=== PATIENT | female | born 1945 | race Caucasian/White ===

== ENCOUNTER 2020-07-31 15:16 | Day surgery (SDC) | payer MEDICARE ==
[2020-07-31] MEDS ORDERED: BUPIVACAINE 0.5% VIAL IJ ONE (15:17)
[2020-07-31] MEDS ORDERED: Depo-Medrol 40 MG/ML IM ONE (15:17)
[2020-07-31] MEDS ORDERED: Xylocaine 1% Vial 30 ML PF IJ ONE (15:17)
--- NOTE | 2020-07-31 16:59 | XRAY ---
Indication: Left SI joint injection. Intraoperative fluoroscopy was provided for 18 seconds. 2 digital spot images submitted for interpretation demonstrates posterior needle tip projecting over the left SI joint inferiorly. Correlate with intraoperative findings/report.
--- NOTE | 2020-07-31 17:04 | XRAY ---
18 seconds fluoroscopy time in surgery for left SI joint injection.
== END 2020-07-31 17:00 | disposition home or self-care (01) ==
LOC: SDC-PAIN 15:16
PROVIDERS: ATTEND Psychiatry & Neurology Pain Medicine
DX: M46.1 Sacroiliitis, not elsewhere classified (principal); I10 Essential (primary) hypertension; K21.9 Gastro-esophageal reflux disease without esophagitis; M19.90 Unspecified osteoarthritis, unspecified site; C44.91 Basal cell carcinoma of skin, unspecified; Z79.899 Other long term (current) drug therapy
CPT/HCPCS: 72020; 77002; G0260; 27096; J1030; J2001

== ENCOUNTER 2022-05-06 14:28 | Day surgery (SDC) | payer MEDICARE ==
[2022-05-06] MEDS ORDERED: XYLOCAINE-MPF 1% 5ML SDV IJ ONE (14:29)
[2022-05-06] MEDS ORDERED: Marcaine Mpf 0.5% Vial 30 Ml IJ ONE (14:29)
[2022-05-06] MEDS ORDERED: Depo-Medrol 40 MG/ML IM ONE (14:29)
--- NOTE | 2022-05-06 16:29 | XRAY ---
Indication: Bilateral SI joint injection. Intraoperative fluoroscopy provided for 23 seconds. 4 digital spot image submitted for interpretation demonstrates posterior needle tip projecting over the inferior left and right SI joints. Correlate with intraoperative findings/report.
--- NOTE | 2022-05-06 16:45 | XRAY ---
23 seconds of fluoroscopy was used in surgery for bilateral SI joint injections.
== END 2022-05-06 16:20 | disposition home or self-care (01) ==
LOC: SDC-PAIN 14:28
PROVIDERS: ATTEND Psychiatry & Neurology Pain Medicine
DX: M46.1 Sacroiliitis, not elsewhere classified (principal); Z79.899 Other long term (current) drug therapy
CPT/HCPCS: 27096; 72202; 77002; G0260; J1030

== ENCOUNTER 2022-07-27 10:32 | Day surgery (SDC) | payer MEDICARE ==
--- NOTE | 2022-07-27 08:48 | HP ---
DATE OF SURGERY: 07/27/2022 HISTORY OF PRESENT ILLNESS: The patient is a 76-year-old with family history of colon cancer. No bloody stools. Change in bowel movements, constipation on MiraLAX, alternating with loose stools with chunks at times a little bit different than in the past. Occasional left-sided aches. PAST MEDICAL HISTORY: Hypertension. Arthritis. Hyperlipidemia. PAST SURGICAL HISTORY: Hemorrhoid surgery. Hip surgery in the past. MEDICATIONS: Vitamin D3, aspirin, gabapentin, simvastatin, amlodipine, losartan. ALLERGIES: NKDA. FAMILY HISTORY: Colon cancer. Chronic obstructive pulmonary disease. SOCIAL HISTORY: No smoking or alcohol abuse. REVIEW OF SYSTEMS: Fourteen systems reviewed, negative or noncontributory as above and per preadmission questionnaire. PHYSICAL EXAMINATION: GENERAL: No acute distress. HEENT: Sclerae nonicteric. NECK: No JVD. CHEST: Equal excursion, nonlabored breathing. CVS: Regular rate and rhythm. ABDOMEN: Very soft. No peritoneal signs. She had some minimal tenderness in the left abdomen in the past. EXTREMITIES: No significant edema. NEURO: Alert, oriented, moving extremities symmetrically. RECTAL: Deferred timed to endoscopy exam. PSYCH: Appropriate mood and affect. IMPRESSION: Family history of colon cancer, some change in bowel movements. She is in need of follow-up screening colonoscopy given her family history. She was shown the risk sheet explained the procedure in detail including but not limited to bleeding or infection, risk of bowel injury or perforation possibly requiring further procedure, risk of missed or nondiagnosis or incomplete exam, possibly requiring barium enema, other studies or procedures, general risk of anesthesia or sedation, risk of bowel prep but not limited to, possibility of inability to diagnose the etiology of the bowel changes. She understands and agrees to the planned procedure, will proceed with outpatient follow up colonoscopy.
[2022-07-27] MEDS ORDERED: Lactated Ringers 1,000 ML IV ONE (10:45)
[2022-07-27] MEDS ORDERED: Lactated Ringers 1,000 ML IV SCH (11:00)
[2022-07-27] MEDS ORDERED: DIPRIVAN 200 MG/20 ML IV ONE ×2 (13:23→13:38)
[2022-07-27 14:25] VITALS: O2SAT 98
--- NOTE | 2022-07-27 15:20 | OP ---
SURGERY DATE/TIME: 07/27/2022 1325 PREOPERATIVE DIAGNOSIS: Family history of colon cancer, need follow up screening colonoscopy. Additionally, she had some alternating constipation and loose stools as well. POSTOPERATIVE DIAGNOSES: 1) Fair bowel prep. 2) Diverticulosis mostly the left colon. 3) Small polyps rectum x2. 4) Fairly unremarkable terminal ileum. PROCEDURES: 1) Colonoscopy to terminal ileum. 2) Random cold biopsies of the ileum. 3) Random cold biopsies of the colon to evaluate for microscopic ileitis and evaluation of microscopic colitis. 4) Hot biopsy rectal polyp x2. SURGEON: Dr. Thomas Brody. SUMMONS SERVER: Darryl Davies, Medical Student II. ANESTHESIA: MAC. ESTIMATED BLOOD LOSS: Minimal. INDICATIONS: As noted above. Risks and benefits explained in detail but not limited to and consent obtained. DESCRIPTION OF PROCEDURE AND FINDINGS: The patient is taken to the endoscopy room. MAC anesthesia induced. After official time out and no disagreement with planned procedure, digital rectal exam did not reveal any rectal masses. Video colonoscope inserted and passed up the slightly tortuous sigmoid, descending, transverse and ascending colon around to the cecum. Appendiceal orifice and valve well visualized and photo documented. It was a difficult angle but the scope was able to be passed into the terminal ileum which was grossly unremarkable. Cold biopsy eventually taken for evaluation of microscopic ileitis since she had a little change in her bowel habits recently. Some random cold biopsies were taken in the colon to evaluate for macroscopic colitis. Otherwise overall the prep was fair. The withdrawal time was about 8 minutes, stopping to do random biopsy in the ileum and colon. The scope is pulled back. She did have mild to moderate diverticulosis in the left colon. There is a small, little early polyp versus hyperplastic lesion in the rectum removed with hot biopsy forceps. Good hemostasis was noted. The scope is withdrawn. Findings discussed with the family out in the waiting area.
[2022-07-27 15:26] VITALS: BP 148/67; PULSE 88
== END 2022-07-27 15:00 | disposition home or self-care (01) ==
LOC: SDC 10:32
PROVIDERS: ATTEND Surgery
DX: Z12.11 Encounter for screening for malignant neoplasm of colon (principal); Z80.0 Family history of malignant neoplasm of digestive organs; K57.30 Diverticulosis of large intestine without perforation or abscess without bleeding; K62.1 Rectal polyp; D13.30 Benign neoplasm of unspecified part of small intestine
CPT/HCPCS: 99100; J2704

== ENCOUNTER 2022-09-02 09:56 | Day surgery (SDC) | payer MEDICARE ==
[2022-09-02] MEDS ORDERED: BUPIVACAINE 0.5% VIAL IJ ONE (09:57)
[2022-09-02] MEDS ORDERED: Depo-Medrol 40 MG/ML IM ONE (09:57)
[2022-09-02] MEDS ORDERED: XYLOCAINE-MPF 1% 5ML SDV IJ ONE (09:57)
[2022-09-02] MEDS ORDERED: Decadron 4 MG INJ IV ONE (09:57)
[2022-09-02] MEDS ORDERED: Lactated Ringers 1,000 ML IV ONE (10:53)
[2022-09-02] MEDS ORDERED: DIPRIVAN 200 MG/20 ML IV ONE (11:20)
--- NOTE | 2022-09-02 12:20 | XRAY ---
Indication: Bilateral SI joint and bilateral piriformis injection. Intraoperative fluoroscopy provided for 1 minute 1 seconds. 7 digital spot images submitted for interpretation demonstrates posterior needle tip projecting over the left and right SI joint. Additional posterior needle tip projects over the left and right piriformis muscles with small amount of contrast injected for needle tip placement. Correlate with intraoperative findings/report.
--- NOTE | 2022-09-02 13:51 | XRAY ---
One minute and 1 second of fluoroscopy was used in surgery for bilateral sacroiliac joint and piriformis muscle injections.
== END 2022-09-02 11:50 | disposition home or self-care (01) ==
LOC: SDC-PAIN 09:56
PROVIDERS: ATTEND Psychiatry & Neurology Pain Medicine
DX: M46.1 Sacroiliitis, not elsewhere classified (principal); M79.18 Myalgia, other site; Z79.899 Other long term (current) drug therapy
CPT/HCPCS: 01992; 20552; 27096; 72202; 77002; 99100; G0260; J1030; J1100; J2704; Q9966

== ENCOUNTER 2023-04-26 17:52 | Emergency (ER) | payer MEDICARE ==
[2023-04-26 18:00] VITALS: TEMP 98.7; O2SAT 98
[2023-04-26] MEDS ORDERED: BABY ASPIRIN 81 MG CHEW PO ONE (18:13)
--- NOTE | 2023-04-26 18:14 | ERPHSYRPT ---
- History of Present Illness Time Seen by Provider: 04/26/23 18:13 Historian: patient Exam Limitations: no limitations Patient Subjective Stated Complaint: Pt states "I was cooking and had this horrible pain shoot accross my chest into both arm and I got a little short of breath." Triage Nursing Assessment: Pt presented alert and oriented X 3, skin pwd. Pt ambulates with an upright steady gait, able to speak in clear full sentences. PT resting comfortably on the bed. Physician History: This is a 77-year-old white female patient of Dr. Leung who presents with sudden onset of bolt of pain simultaneously starting at her bilateral upper extremities going across her chest. As quickly as it came the pain left. She has no chest pain at this time. However, she had associated weakness and mild shortness of breath. She still has those symptoms but they are much less intense. She has no documented history of any cardiac disease. She has never had this kind of pain before. She does not have a headache. She had no visual changes. Patient has no fever and no cough. Patient does have a history of hypertension and hyperlipidemia. Timing/Duration: today Activities at Onset: none Quality: other ("[place] of shooting pain") Location: other (Initial bilateral upper extremity and shot across her chest) Severity of Pain-Max: moderate Severity of Pain-Current: none Modifying Factors: Improves With: nothing Associated Symptoms: shortness of breath (Mild), weakness (Mild) Prior Chest Pain/Cardiac Workup: no prior chest pain, no prior cardiac workup Nitro Today/Relief: no nitro taken today Aspirin Treatment Today: 81 mg x 4 Allergies/Adverse Reactions: No Known Drug Allergies Allergy (Verified 07/27/22 10:52) Home Medications: Amlodipine Besylate 10 mg PO DAILY 06/30/22 [History] Aspirin [Low Dose Aspirin EC] 81 mg HS 06/30/22 [History] Losartan Potassium 25 mg PO DAILY 06/30/22 [History] Simvastatin 10 mg [Zocor 10MG] 10 mg PO DAILY 06/30/22 [History] Trazodone HCl 50 mg HS 06/30/22 [History] hydroCHLOROthiazide [Hydrochlorothiazide] 25 mg PO DAILY 06/30/22 [History] Hx Tetanus, Diphtheria Vaccination/Date Given: Yes Hx Influenza Vaccination/Date Given: Yes Hx Pneumococcal Vaccination/Date Given: Yes Immunizations Up to Date: Yes Travel Risk - International Travel Have you traveled outside of the country in past 3 weeks: No - Coronavirus Screening Are you exhibiting any of the following symptoms?: No Close contact with a COVID-19 positive Pt in past 14-21 Days: No - Vaccine Status Have you recieved a Covid-19 vaccination: Yes 3D Artist: Moderna - Vaccination Dates Date of 2cond Vaccination (if applicable): 2020 - Review of Systems Constitutional: No Symptoms Eyes: No Symptoms Ears, Nose, & Throat: No Symptoms Respiratory: No Symptoms Cardiac: Chest Pain Abdominal/Gastrointestinal: No Symptoms Genitourinary Symptoms: No Symptoms Musculoskeletal: No Symptoms Skin: No Symptoms Neurological: No Symptoms Psychological: No Symptoms Endocrine: No Symptoms Hematologic/Lymphatic: No Symptoms Immunological/Allergic: No Symptoms All Other Systems: Reviewed and Negative - Past Medical History Pertinent Past Medical History: Yes Neurological History: No Pertinent History ENT History: No Pertinent History Cardiac History: Hypertension Respiratory History: No Pertinent History Endocrine Medical History: No Pertinent History Musculoskeletal History: No Pertinent History GI Medical History: No Pertinent History History: No Pertinent History Psycho-Social History: No Pertinent History Female Reproductive Disorders: No Pertinent History - Past Surgical History Past Surgical History: Yes Neuro Surgical History: No Pertinent History Cardiac: No Pertinent History Respiratory: No Pertinent History Gastrointestinal: No Pertinent History Genitourinary: No Pertinent History Musculoskeletal: Joint Replacement Female Surgical History: Tubal Ligation Other Surgical History: wrist lt, left hip, colonoscopy,EGD - Social History Smoking Status: Never smoker Exposure to second hand smoke: No Drug Use: none Patient Lives Alone: No - Nursing Vital Signs Nursing Vital Signs: Initial Vital Signs Temperature 98.7 F 04/26/23 17:52 Pulse Rate 95 H 04/26/23 17:52 Respiratory Rate 20 04/26/23 17:52 Blood Pressure 171/75 04/26/23 17:52 O2 Sat by Pulse Oximetry 98 04/26/23 17:52 Pain Scale Pain Intensity 0 - Physical Exam General Appearance: no apparent distress, alert, anxiety Eye Exam: PERRL/EOMI, eyes nml inspection Ears, Nose, Throat Exam: normal ENT inspection, moist mucous membranes Neck Exam: normal inspection, non-tender, supple, full range of motion Respiratory Exam: normal breath sounds, lungs clear, airway intact, other (Patient no longer has chest pain or discomfort), No respiratory distress Cardiovascular Exam: regular rate/rhythm, normal heart sounds, normal peripheral pulses Gastrointestinal/Abdomen Exam: soft, normal bowel sounds, No tenderness Pelvic Exam: not done Rectal Exam: not done Back Exam: normal inspection, normal range of motion, No CVA tenderness, No vertebral tenderness Extremity Exam: normal inspection, normal range of motion, pelvis stable Neurologic Exam: alert, oriented x 3, cooperative, furnace cooler II-XII nml as tested, normal mood/affect, nml cerebellar function, nml station & gait, sensation nml Skin Exam: normal color, warm, dry Lymphatic Exam: No adenopathy SpO2 Interpretation: normal SpO2: 98 O2 Delivery: Room Air - Course Nursing assessment & vital signs reviewed: Yes EKG Interpreted by Me: RATE (84), Sinus Rhythm, NORMAL AXIS, NORMAL INTERVALS, NORMAL QRS, NORMAL ST-T, Other Ordered Tests: Active Orders 24 hr Category Date Time Status Doctor Of Podiatry STAT Care 04/26/23 18:14 Active EKG-ER Only STAT Care 04/26/23 18:13 Active IV Insertion STAT Care 04/26/23 18:13 Active Pulse Oximetry (ED) STAT Care 04/26/23 18:13 Active CHEST 1 VIEW (PORTABLE) Stat Exams 04/26/23 18:14 Taken CHEST WITH CONTRAST [CT] Stat Exams 04/26/23 19:13 Taken CBC W DIFF Stat Lab 04/26/23 18:05 Completed CMP Stat Lab 04/26/23 18:05 Completed D-DIMER QUANTITATIVE Stat Lab 04/26/23 18:49 Completed TROPONIN Q4H Lab 04/26/23 18:05 Completed TROPONIN Q4H Lab 04/26/23 20:57 Completed TROPONIN Q4H Lab 04/27/23 02:15 Ordered Medication Summary Discontinued Medications Generic Name Dose Route Start Last Admin Trade Name Freq PRN Reason Stop Dose Admin Aspirin 324 mg 04/26/23 18:13 04/26/23 18:30 Aspirin 81 Mg Tab.Chew PO 04/26/23 18:14 324 mg STAT ONE Administration Aspirin Confirm 04/26/23 18:27 Aspirin 81 Mg Tab.Chew Administered 04/26/23 18:28 Dose 324 mg .ROUTE .STK-MED ONE Sodium Chloride 500 mls @ 500 mls/hr 04/26/23 19:13 04/26/23 19:28 Sodium Chloride 0.9% 500 Ml IV 04/26/23 20:12 500 mls/hr .Q1H ONE Administration Sodium Chloride Confirm 04/26/23 19:26 Sodium Chloride 0.9% 500 Ml Administered 04/26/23 19:27 Dose 500 mls @ ud IV .STK-MED ONE Potassium Chloride 10 meq 04/26/23 19:13 04/26/23 19:28 Potassium Chloride Tab 10 Meq Tab PO 04/26/23 19:14 10 meq STAT ONE Administration Potassium Chloride Confirm 04/26/23 19:26 Potassium Chloride Tab 10 Meq Tab Administered 04/26/23 19:27 Dose 10 meq PO .STK-MED ONE Lab/Rad Data: Laboratory Result Diagrams 04/26/23 18:05 04/26/23 18:05 Laboratory Results 04/26/23 04/26/23 04/26/23 Range/Units 20:57 18:49 18:05 WBC (4.0-10.5) x10^3/uL RBC (4.1-5.4) x10^6/uL Hgb (12.0-16.0) g/dL Hct (35-47) % MCV (78-100) fL MCH (26-32) pg MCHC (32-36) g/dL RDW (11.5-14.0) % Plt Count (150-450) x10^3/uL MPV (7.5-11.0) fL Gran % (36.0-66.0) % Immature Gran % (Auto) (0.00-0.4) % Nucleat RBC Rel Count (0.00-0.1) % Eos # (Auto) (0-0.5) x10^3/uL Immature Gran # (Auto) (0.00-0.03) x10^3u/L Absolute Lymphs (auto) (1.0-4.6) x10^3/uL Absolute Monos (auto) (0.0-1.3) x10^3/uL Absolute Nucleated RBC (0.00-0.01) x10^3u/L Lymphocytes % (24.0-44.0) % Monocytes % (0.0-12.0) % Eosinophils % (0.00-5.0) % Basophils % (0.0-0.4) % Absolute Granulocytes (1.4-6.9) x10^3/uL Basophils # (0-0.4) x10^3/uL D-Dimer 0.91 H* (0.0-0.50) mg/L Sodium (137-145) mmol/L Potassium (3.5-5.1) mmol/L Chloride (98-107) mmol/L Carbon Dioxide (22-30) mmol/L Anion Gap (5-15) MEQ/L BUN (7-17) mg/dL Creatinine (0.52-1.04) mg/dL Estimated GFR ML/MIN Glucose (74-106) mg/dL Calcium (8.4-10.2) mg/dL Total Bilirubin (0.2-1.3) mg/dL AST (14-36) U/L ALT (0-35) U/L Alkaline Phosphatase (38-126) U/L Troponin I 0.016 0.015 (0.000-0.034) ng/mL Serum Total Protein (6.3-8.2) g/dL Albumin (3.5-5.0) g/dL 04/26/23 04/26/23 Range/Units 18:05 18:05 WBC 5.1 (4.0-10.5) x10^3/uL RBC 4.07 L (4.1-5.4) x10^6/uL Hgb 13.4 (12.0-16.0) g/dL Hct 40.0 (35-47) % MCV 98.3 (78-100) fL MCH 32.9 H (26-32) pg MCHC 33.5 (32-36) g/dL RDW 12.3 (11.5-14.0) % Plt Count 248 (150-450) x10^3/uL MPV 8.7 (7.5-11.0) fL Gran % 60.2 (36.0-66.0) % Immature Gran % (Auto) 0.4 (0.00-0.4) % Nucleat RBC Rel Count 0.0 (0.00-0.1) % Eos # (Auto) 0.09 (0-0.5) x10^3/uL Immature Gran # (Auto) 0.02 (0.00-0.03) x10^3u/L Absolute Lymphs (auto) 1.49 (1.0-4.6) x10^3/uL Absolute Monos (auto) 0.38 (0.0-1.3) x10^3/uL Absolute Nucleated RBC 0.00 (0.00-0.01) x10^3u/L Lymphocytes % 29.3 (24.0-44.0) % Monocytes % 7.5 (0.0-12.0) % Eosinophils % 1.8 (0.00-5.0) % Basophils % 0.8 (0.0-0.4) % Absolute Granulocytes 3.06 (1.4-6.9) x10^3/uL Basophils # 0.04 (0-0.4) x10^3/uL D-Dimer (0.0-0.50) mg/L Sodium 134 L (137-145) mmol/L Potassium 3.4 L (3.5-5.1) mmol/L Chloride 99 (98-107) mmol/L Carbon Dioxide 25 (22-30) mmol/L Anion Gap 13.0 (5-15) MEQ/L BUN 16 (7-17) mg/dL Creatinine 1.09 H (0.52-1.04) mg/dL Estimated GFR 51.6 ML/MIN Glucose 83 (74-106) mg/dL Calcium 9.3 (8.4-10.2) mg/dL Total Bilirubin 0.50 (0.2-1.3) mg/dL AST 23 (14-36) U/L ALT 16 (0-35) U/L Alkaline Phosphatase 60 (38-126) U/L Troponin I (0.000-0.034) ng/mL Serum Total Protein 6.6 (6.3-8.2) g/dL Albumin 4.4 (3.5-5.0) g/dL - Progress Progress: improved, re-examined Air Movement: good Progress Note: 04/26/23 21:03 Chest x-ray was interpreted by me. There is no evidence of any acute cardiopulmonary process. The patient's medical issue is 1 of moderate complexity. Level of complexity and the work-up performed is based on review of the patient's past medical history, review of the patient's medication list, reviewed the patient's drug allergy list, history of present illness and physical findings on examination. The work-up in this patient includes placement of an intravenous line, twelve- lead EKG, CBC, CMP, D-dimer and troponin level. In addition, I ordered an x-ray of the chest and interpreted that study. I reviewed the results of the work- up. The patient had an elevated D-dimer and the remainder of the work-up results show no acute, emergent medical issue. I ordered a CT scan of the chest with contrast and I am awaiting the results of this study. If this study is negative, patient be discharged home with instruction to follow-up with her primary care provider on 04/27/2020 3 in the morning. She is to make a follow-up appointment for further evaluation and management including referral to a speech professor if indicated. 04/26/23 22:15 CT scan of the chest with contrast shows a small hiatal hernia but no acute cardiopulmonary process. There is no evidence of pulmonary embolus. Blood Culture(s) Obtained: No Antibiotics given: No Counseled pt/family regarding: lab results, diagnosis, need for follow-up, rad results Medical Desision Making - Independent Historian Additional History obtained from: Spouse - Diagnostic Testing Diagnostic test were ordered, analyzed, and reviewed by me: Yes Radiological Interpretation: Interpreted by me, Reviewed by me, Teleradiologist Report - Risk of complications Low Risk: Low risk of morbidity from additional dx testing or treatment - Departure Departure Disposition: Home Clinical Impression: Chest pain Condition: Stable Critical Care Time: No Referrals: ELBERT YOUNGBLOOD, [Primary Care Provider] - Follow up/PCP as directed Additional Instructions: Take all your medication as prescribed. Call your primary care provider tomorrow morning, 04/27/2023, to make arrangements for further evaluation and management including outpatient cardiac work-up and possible referral to a speech professor if indicated.
[2023-04-26] MEDS ORDERED: BABY ASPIRIN 81 MG CHEW ONE (18:27)
[2023-04-26 18:52] LABS: ALBUMIN 4.4 g/dL (3.5-5.0); Absolute Neutrophil Ct (ANC) 3.06 x10^3/uL (1.4-6.9); BASOPHIL % 0.8 % (0.0-0.4); BILIRUBIN,TOTAL 0.5 mg/dL (0.2-1.3); Basophil (Absolute #) 0.04 x10^3/uL (0-0.4); Calcium 9.3 mg/dL (8.4-10.2); Creatinine 1 1.09 mg/dL (0.52-1.04); EST GLOMERULAR FILTRATION RATE 51.6 ML/MIN; Eosinophil % 1.8 % (0.00-5.0); Eosinophil (Absolute #) 0.09 x10^3/uL (0-0.5); Hemoglobin 13.4 g/dL (12.0-16.0); IMMATURE GRAN # 0.02 x10^3u/L (0.00-0.03); IMMATURE GRAN % 0.4 % (0.00-0.4); Lymphocyte (Absolute #) 1.49 x10^3/uL (1.0-4.6); Lymphocytes % 29.3 % (24.0-44.0); Mean Cell Volume 98.3 fL (78-100); Mean Corpuscular Hemoglobin 32.9 pg (26-32); Mean Corpuscular Hgb Concent. 33.5 g/dL (32-36); Mean Platelet Volume 8.7 fL (7.5-11.0); Monocyte (Absolute #) 0.38 x10^3/uL (0.0-1.3); Monocytes % 7.5 % (0.0-12.0); Neutrophil % 60.2 % (36.0-66.0); Platelet Count 248 x10^3/uL (150-450); Potassium 3.4 mmol/L (3.5-5.1); Red Blood Count 4.07 x10^6/uL (4.1-5.4); Red Cell Distribution Width 12.3 % (11.5-14.0); Total Protein 6.6 g/dL (6.3-8.2); White Blood Count 5.1 x10^3/uL (4.0-10.5)
[2023-04-26] MEDS ORDERED: Sodium Chloride 0.9% 500 ML 500 ML IV ONE ×2 (19:13→19:26)
[2023-04-26] MEDS ORDERED: Klor Con PO ONE ×2 (19:13→19:26)
[2023-04-26 22:13] VITALS: BP 134/85; PULSE 77; RESP 17
--- NOTE | 2023-04-27 08:39 | XRAY ---
Indication: Chest pain. Elevated d-dimer. Multiple contiguous axial images obtained through the chest using 80 cc Isovue 370 contrast and PE protocol. Comparison: None Adequate opacification of the pulmonary arteries to include the lobar and segmental branches. No pulmonary embolus. Heart not enlarged with scattered coronary calcifications. Mildly arteriosclerotic aorta without aneurysm. No pathologic mediastinal lymphadenopathy. Small hiatal hernia. Lungs demonstrate mild bilateral dependent atelectasis. No suspicious pulmonary mass/nodule, infiltrate, effusion, or pneumothorax. Bony thorax intact with osteopenia, mild/moderate degenerative changes throughout spine, and mild levoscoliosis centered at T12. Limited upper abdomen demonstrates 8.1 cm left renal cyst. Impression: 1. Negative pulmonary embolus. No acute cardiopulmonary abnormalities. 2. Chronic findings including hiatal hernia, chronic bony findings, and left renal cyst.
--- NOTE | 2023-04-27 08:41 | XRAY ---
Indication: Chest pain radiating both arms. Comparison: None Portable chest inflated and clear. Heart not enlarged. Bony thorax intact with osteopenia, mild degenerative changes, and minimal levoscoliosis. Impression: Nonacute chest with chronic bony findings.
== END 2023-04-26 22:24 | disposition home or self-care (01) ==
LOC: ED 17:52
DX: R07.9 Chest pain, unspecified (principal); R53.1 Weakness; R06.02 Shortness of breath; I10 Essential (primary) hypertension; E78.5 Hyperlipidemia, unspecified; Z79.899 Other long term (current) drug therapy
CPT/HCPCS: 36000; 36415; 71045; 71260; 80053; 84484; 85025; 85379; 93005; 93041; 94760; 99284; A9270-GY